=== PATIENT | female | born 1990 | race Caucasian/White ===

== ENCOUNTER 2017-02-15 19:59 | Emergency (ER) | payer MEDICAID, OTHER ==
[~2017-02-15 19:59] MED LIST: IBUP600 PO; MACR100C PO; PERI8.6T PO; PREN29CH PO
[2017-02-15 20:03] VITALS: BP 135/74; PULSE 108; RESP 16; TEMP 98.4; O2SAT 98
[2017-02-15] MEDS ORDERED: SE-NCHW CHEW (21:04)
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
== END 2017-02-15 23:11 | disposition home or self-care (01) ==
LOC: NEPD 19:59
DX: O26.891 Other specified pregnancy related conditions, first trimester (principal); J45.909 Unspecified asthma, uncomplicated; V43.52XA Car driver injured in collision with other type car in traffic accident, initial encounter; Y92.410 Unspecified street and highway as the place of occurrence of the external cause; Z3A.01 Less than 8 weeks gestation of pregnancy; Z88.2 Allergy status to sulfonamides; Z88.0 Allergy status to penicillin
CPT/HCPCS: 99282